=== PATIENT | male | born 1960 | race Caucasian/White ===

== ENCOUNTER 2016-05-26 02:09 | Observation (INO) | payer BC ==
[2016-05-26] MEDS ORDERED: NITROGLYCERIN SL TABS 0.4 MG TAB SUBLINGUAL STA (02:40)
[2016-05-26] MEDS ORDERED: ASPIRIN 81 MG CHEW PO STA (02:40)
[2016-05-26 02:59] LABS: Basophils # (A) 0.1 k/uL (0-0.2); Basophils % (A) 1 %; CH 29.7; CHCM 36.2; Eosinophils # (A) 0.2 k/uL (0-0.7); Eosinophils % (A) 4 %; HCT 45.5 % (39.0-53.0); HDW 3.05; HGB 15.9 gm/dL (13.0-17.5); Luc # (Auto) 0.16; Luc % (Auto) 3; Lymphocytes # (A) 1.5 k/uL (1.0-4.8); Lymphocytes % (A) 28 %; MCH 28.8 pg (25.0-35.0); MCV 82.4 fL (80.0-100.0); Mean Platelet Volume 7.3; Monocytes # (A) 0.5 k/uL (0-1.0); Monocytes % (A) 10 %; Neutrophils # (A) 2.9 k/uL (1.3-7.7); Neutrophils % (A) 55 %; RBC 5.52 m/uL (4.30-5.90); RDW 13.2 % (11.5-15.5); WBC 5.3 k/uL (3.8-10.6); WBC (Perox) 5.16
[2016-05-26 03:05] LABS: ALT 56 U/L (21-72); AST 30 U/L (17-59); Alkaline Phosphatase 42 U/L (38-126); Anion Gap 12 mmol/L; Blood Urea Nitrogen 18 mg/dL (9-20); Calcium 9.8 mg/dL (8.4-10.2); Carbon Dioxide 26 mmol/L (22-30); Chloride 102 mmol/L (98-107); Glucose 124 mg/dL (74-99); Magnesium 2.1 mg/dL (1.6-2.3); Non-African American GFR(MDRD) >60 (>60 ml/min/1.73 sqM); Potassium 4.1 mmol/L (3.5-5.1); Sodium 140 mmol/L (137-145); Total Bilirubin 0.8 mg/dL (0.2-1.3); Total Protein 7.2 g/dL (6.3-8.2)
--- NOTE | 2016-05-26 03:12 | XR ---
EXAMINATION TYPE: XR chest 1V portable DATE OF EXAM: 05/26/2016 3:05 AM COMPARISON: 02/18/2014 HISTORY: Chest pain TECHNIQUE: Single frontal view of the chest is obtained. FINDINGS: There is no focal air space opacity, pleural effusion, or pneumothorax seen. The cardiac silhouette size is within normal limits. The osseous structures are intact. Moderate degenerative c hanges in the thoracolumbar spine. IMPRESSION: 1. No acute process. 2. No significant change.
[2016-05-26] MEDS ORDERED: NITROGLYCERIN SL TABS 0.4 MG TAB SUBLINGUAL PRN (05:46)
--- NOTE | 2016-05-26 05:49 | ED ---
General Adult HPI - General Chief complaint: Extremity Problem,Nontraumatic Stated complaint: Shoulder Pain/Facial/Arms/Leg Tingling Time Seen by Provider: 05/26/16 02:24 Source: patient, RN notes reviewed Mode of arrival: wheelchair Limitations: no limitations - History of Present Illness Initial comments: This patient is a 55-year-old man who presents to be evaluated for chest and shoulder sensation. The patient states that he had been trying to go to sleep probably about an hour ago and noted that he had a funny feeling going into his left shoulder and down the left arm. There was also little bit of a sensation toward the left side of his neck or face. He may have been having some mild dyspnea as well. He got up and checked his blood pressure and found that it was somewhat high for him in the neighborhood of 160/90 so he decided to be seen here. He has been having some intermittent episodes like this over the past few days. Patient states that he did have a stress test previously but this was a number years ago. Patient denies any other anginal symptoms Onset/Timin -: hour(s) Radiation: extremity Quality: dull, constant Consistency: constant Improves with: none Worsens with: none Associated Symptoms: shortness of breath Treatments Prior to Arrival: none - Related Data Home Medications Medication Instructions Recorded Confirmed Aspirin 81 mg PO DAILY 02/18/14 05/26/16 Fenofibrate Nanocrystallized 1 tab PO DAILY 02/18/14 05/26/16 [Tricor] Losartan/Hydrochlorothiazide 1 tab PO DAILY 02/18/14 05/26/16 [Hyzaar 100-25 Tablet] Multivitamins, Thera [Multivitamin] 1 each PO DAILY 11/12/14 05/26/16 Simvastatin [Zocor] 40 mg PO DAILY 11/12/14 05/26/16 amLODIPine [Norvasc] 5 mg PO DAILY 05/26/16 05/26/16 Allergies Allergy/AdvReac Type Severity Reaction Status Date / Time No Known Allergies Allergy Verified 05/26/16 02:16 Review of Systems ROS Statement: Those systems with pertinent positive or pertinent negative responses have been documented in the HPI. ROS Other: All systems not noted in ROS Statement are negative. Constitutional: Denies: fever, chills Respiratory: Reports: as per HPI, dyspnea. Denies: cough Cardiovascular: Reports: as per HPI, chest pain. Denies: palpitations, edema, syncope Gastrointestinal: Denies: abdominal pain, nausea, vomiting, melena, hematochezia Genitourinary: Denies: dysuria Musculoskeletal: Denies: back pain Skin: Reports: other (Feeling flushed). Denies: rash Neurological: Reports: numbness (Left arm). Denies: headache, weakness Past Medical History Past Medical History: Hyperlipidemia, Hypertension, Sleep Apnea/CPAP/BIPAP Additional Past Medical History / Comment(s): SLEEP APNEA History of Any Multi-Drug Resistant Organisms: None Reported Past Surgical History: Orthopedic Surgery Additional Past Surgical History / Comment(s): RIGHT SHOULDER, Past Anesthesia/Blood Transfusion Reactions: No Reported Reaction Past Psychological History: No Psychological Hx Reported Smoking Status: Never smoker Past Alcohol Use History: None Reported Past Drug Use History: None Reported - Past Family History Father Family Medical History: Cancer General Exam Limitations: no limitations General appearance: alert, in no apparent distress, anxious Head exam: Present: atraumatic, normocephalic, normal inspection Eye exam: Present: normal appearance ENT exam: Present: normal oropharynx Neck exam: Present: normal inspection Respiratory exam: Present: normal lung sounds bilaterally. Absent: respiratory distress, wheezes, rales, rhonchi, stridor Cardiovascular Exam: Present: regular rate, normal rhythm, normal heart sounds. Absent: systolic murmur, diastolic murmur, rubs, gallop GI/Abdominal exam: Present: soft. Absent: distended, tenderness, guarding Extremities exam: Present: normal inspection, normal capillary refill. Absent: pedal edema, calf tenderness Back exam: Present: normal inspection. Absent: CVA tenderness (R), CVA tenderness (L) Neurological exam: Present: alert Skin exam: Present: warm, dry, intact, normal color. Absent: rash Course Vital Signs 05/26/16 05/26/16 02:12 06:09 Temperature 97.4 F L Pulse Rate 82 72 Respiratory 18 12 Rate Blood Pressure 155/89 134/68 O2 Sat by Pulse 97 98 Oximetry EKG Findings - EKG Results: EKG: interpreted by MOUSTAPHA GAN, sinus rhythm (Rate 73 bpm), normal axis, normal QRS, normal ST/T, no acute changes Medical Decision Making - Lab Data Result diagrams: 05/26/16 02:20 05/26/16 02:20 Lab Results 05/26/16 05/26/16 05/26/16 Range/Units 02:20 02:20 02:20 WBC 5.3 (3.8-10.6) k/uL RBC 5.52 (4.30-5.90) m/uL Hgb 15.9 (13.0-17.5) gm/dL Hct 45.5 (39.0-53.0) % MCV 82.4 (80.0-100.0) fL MCH 28.8 (25.0-35.0) pg MCHC 35.0 (31.0-37.0) g/dL RDW 13.2 (11.5-15.5) % Plt Count 252 (150-450) k/uL Neutrophils % 55 % Lymphocytes % 28 % Monocytes % 10 % Eosinophils % 4 % Basophils % 1 % Neutrophils # 2.9 (1.3-7.7) k/uL Lymphocytes # 1.5 (1.0-4.8) k/uL Monocytes # 0.5 (0-1.0) k/uL Eosinophils # 0.2 (0-0.7) k/uL Basophils # 0.1 (0-0.2) k/uL Sodium 140 (137-145) mmol/L Potassium 4.1 (3.5-5.1) mmol/L Chloride 102 (98-107) mmol/L Carbon Dioxide 26 (22-30) mmol/L Anion Gap 12 mmol/L BUN 18 (9-20) mg/dL Creatinine 1.10 (0.66-1.25) mg/dL Est GFR (MDRD) Af Amer >60 (>60 ml/min/1.73 sqM) Est GFR (MDRD) Non-Af >60 (>60 ml/min/1.73 sqM) Glucose 124 H (74-99) mg/dL Calcium 9.8 (8.4-10.2) mg/dL Magnesium 2.1 (1.6-2.3) mg/dL Total Bilirubin 0.8 (0.2-1.3) mg/dL AST 30 (17-59) U/L ALT 56 (21-72) U/L Alkaline Phosphatase 42 (38-126) U/L Troponin I <0.012 (0.000-0.034) ng/mL Total Protein 7.2 (6.3-8.2) g/dL Albumin 4.4 (3.5-5.0) g/dL Disposition Clinical Impression: Chest pain Disposition: ADMITTED IP TO THIS HOSP Condition: Fair
[2016-05-26 07:09] VITALS: RESP 16
[2016-05-26] MEDS ORDERED: amLODIPine 5 MG TAB PO SCH (09:00)
[2016-05-26] MEDS ORDERED: LOSARTAN-HCTZ 50-12.5 MG 1 EACH TAB PO SCH (09:00)
[2016-05-26] MEDS ORDERED: METOPROLOL TARTRATE 25 MG TAB PO SCH (09:00)
[2016-05-26] MEDS ORDERED: ATORVASTATIN 20 MG TAB PO SCH (09:00)
[2016-05-26] MEDS ORDERED: MULTIVITAMINS, THERA 1 EACH TAB PO SCH (09:00)
[2016-05-26] MEDS ORDERED: ASPIRIN 81 MG CHEW PO SCH (09:00)
[2016-05-26] MEDS ORDERED: FENOFIBRATE 160 MG TAB PO SCH (09:00)
[2016-05-26 09:26] VITALS: BMI 35.7
[2016-05-26 10:05] LABS: Creatine Kinase 125 U/L (55-170)
[2016-05-26 10:18] LABS: Creatine Kinase MB 1.3 ng/mL (0.0-2.4); Troponin I <0.012 ng/mL (0.000-0.034)
[2016-05-26] MEDS ORDERED: amLODIPine 5 MG TAB PO STA (11:49)
[2016-05-26 11:57] VITALS: BP 143/72; PULSE 73; TEMP 98.9
--- NOTE | 2016-05-26 11:57 | P.CRDCN ---
History of Present Illness Chief complaint: htn History of present illness: 55-year-old male patient who was getting ready to go to bed. He started experiencing pounding in the chest a vague discomfort in the left deltopectoral groove area numbness in the face and then later flushing all over the body down to the legs Each time he would have this symptom complex his blood pressure was high with a normal heart rate He recalled the highest blood pressure almost 200 mmHg Review of systems: No fever chills or rigors, no cough, phlegm or expectoration , no nausea, vomiting or diarrhea, no hematuria, dysuria, no musculoskeletal complaints, no strokes or seizures, no skin lesions. Past history of hypertension, dyslipidemia, obstructive sleep apnea using a CPAP mask Medications reviewed he takes Hyzaar 100/25 mg along with amlodipine 5 mg daily He also takes TriCor and simvastatin Nondiabetic Never smoker no alcohol use On examination afebrile 98.5, pulse rate in the 70s, blood pressure 158/73 mmHg and 149/73 mmHg Heart sounds are normal no murmurs or gallops Breath sounds are normal no rhonchi no crackles No JVD no thyromegaly no carotid bruits Abdomen soft nontender Extremities warm no edema . ECG shows normal sinus rhythm and normal cardiac intervals no ST segment abnormalities this ECG was compared with his ECG from 2011 and is virtually identical Labs are reviewed. 2 serial cardiac enzymes are normal, hemoglobin normal, electrolytes normal, Impression Atypical chest discomfort associated with numbness in the face and flushing all over the body including the both legs No evidence for acute myocardial injury Uncontrolled hypertension associated with these symptoms Dyslipidemia Obstructive sleep apnea Plan Low salt diet Third set of cardiac enzymes If this is normal he may go home today on a higher dose of amlodipine of 10 mg a day Stagger blood pressure medications one in the morning and 1 in the evening Past Medical History Past Medical History: Hyperlipidemia, Hypertension, Sleep Apnea/CPAP/BIPAP Additional Past Medical History / Comment(s): SLEEP APNEA History of Any Multi-Drug Resistant Organisms: None Reported Past Surgical History: Orthopedic Surgery Additional Past Surgical History / Comment(s): RIGHT SHOULDER, Past Anesthesia/Blood Transfusion Reactions: No Reported Reaction Past Psychological History: No Psychological Hx Reported Smoking Status: Never smoker Past Alcohol Use History: None Reported Past Drug Use History: None Reported - Past Family History Mother Additional Family Medical History / Comment(s): HEART BYPASS Father Family Medical History: Cancer Medications and Allergies Home Medications Medication Instructions Recorded Confirmed Type Aspirin 81 mg PO DAILY 02/18/14 05/26/16 History Fenofibrate Nanocrystallized 1 tab PO DAILY 02/18/14 05/26/16 History [Tricor] Losartan/Hydrochlorothiazide 1 tab PO DAILY 02/18/14 05/26/16 History [Hyzaar 100-25 Tablet] Multivitamins, Thera [Multivitamin] 1 each PO DAILY 11/12/14 05/26/16 History Simvastatin [Zocor] 40 mg PO DAILY 11/12/14 05/26/16 History amLODIPine [Norvasc] 5 mg PO DAILY 05/26/16 05/26/16 History Allergies Allergy/AdvReac Type Severity Reaction Status Date / Time No Known Allergies Allergy Verified 05/26/16 02:16 Physical Exam Vitals: Vital Signs Temp Pulse Pulse Resp BP BP Pulse Ox 05/26/16 07:20 98.5 F 72 16 149/73 95 05/26/16 07:08 98 F 78 16 158/73 93 L 05/26/16 06:09 72 12 134/68 98 Intake and Output 05/25/16 05/26/16 05/26/16 22:59 06:59 14:59 Other: Voiding Method Toilet Weight 119.5 kg 119.5 kg Patient Weight 05/27/16 06:59 Weight 119.5 kg Results 05/26/16 02:20 05/26/16 02:20 Cardiac Enzymes 05/26/16 Range/Units 09:07 CK-MB (CK-2) 1.3 (0.0-2.4) ng/mL Troponin I <0.012 (0.000-0.034) ng/mL Current Medications Generic Name Dose Route Start Last Admin Trade Name Freq PRN Reason Stop Dose Admin Amlodipine Besylate 5 mg 05/26/16 09:00 05/26/16 11:32 Norvasc PO 5 mg DAILY [facility] Administration Aspirin 325 mg 05/27/16 09:00 Aspirin PO DAILY [facility] Atorvastatin Calcium 20 mg 05/26/16 09:00 05/26/16 09:33 Lipitor PO 20 mg DAILY [facility] Administration Fenofibrate 160 mg 05/26/16 09:00 05/26/16 09:33 Lofibra PO 160 mg DAILY [facility] Administration HCTZ/Losartan Potassium 2 each 05/26/16 09:00 05/26/16 09:33 Hyzaar 50-12.5 PO 2 each DAILY [facility] Administration Multivitamins 1 each 05/26/16 09:00 05/26/16 09:33 Theragran PO 1 each DAILY JA[facility] Administration Nitroglycerin 0.4 mg 05/26/16 05:46 Nitrostat SUBLINGUAL Q5M PRN Chest Pain Sodium Chloride 10 ml 05/26/16 09:00 05/26/16 09:35 Saline Flush IV 10 ml BID JAIME Administration Intake and Output 05/25/16 05/26/16 05/26/16 22:59 06:59 14:59 Other: Voiding Method Toilet Weight 119.5 kg 119.5 kg Patient Weight 05/27/16 06:59 Weight 119.5 kg
--- NOTE | 2016-05-26 12:58 | HP ---
DATE OF ADMISSION: CHIEF COMPLAINT: Tingling, numbness left arm, left face over the last several days. This is a 55-year-old white male that had this unusual chest, neck, shoulder sensation that has been going on that night, woke up and when checked his blood pressure, it was 160/90 decided to come. He said it actually had been happening over the last several days. He said he might have had some mild dyspnea, but the feeling was definitely uncomfortable. He has had a stress test over the last several years and was negative. The radiation was down the extremity, the quality was a dull consistently constant. There was no improvement or worsening within the relationship, but he did have some shortness of breath. ALLERGIES: No known medications. His medications include: 1. Aspirin 81 mg a day. 2. He takes TriCor ( ) daily. 3. Hyzaar 100/25 one daily. 4. Multivitamin. 5. Simvastatin 40. 6. Amlodipine 5. His family history is just basically cancer throughout. PAST MEDICAL HISTORY: Hyperlipidemia, hypertension, sleep apnea. He has had history of arthritis involving the shoulders and lower back. He has had shoulder surgery. Past surgeries have been shoulder surgery. SOCIAL HISTORY: Basically never smoker. Occasional drinker. He lives alone. He works for the [employer] for years. REVIEW OF SYSTEMS: CARDIOPULMONARY: No shortness of breath except for maybe one time, no paroxysmal nocturnal dyspnea. No true chest pain, but the feeling of uncomfortability in left anterior chest with some discomfort down the left arm and left neck. GI: No hematemesis, melena, hematochezia. : No nausea or vomiting. Occasionally he has to push his urine to start. MUSCULOSKELETAL: He just has history of back pain for many years ago, degenerative disc disease. Neurological symptoms which is the numbness. No headache. No weakness Skin has been with no problems. PHYSICAL EXAMINATION: VITAL SIGNS: Blood pressure 134/68, heart rate was in the 70s, temperature was 98 and his respiratory rate was 12 ENT was within normal limits. Neck is supple. Midline trachea. CHEST: Essentially clear to auscultation. HEART: Sinus rhythm with no murmur. ABDOMEN: Soft, nontender. No organomegaly. EXTREMITIES: Really within normal limits. He does have some arthritis in his hands and some decreased range of motion lower extremity. Evaluation of EKG does appear to be within normal limits. Initial lab work showed a 15.9 hemoglobin. He did have a potassium of 4.1, BUN of 18 and a creatinine of 0.11 with greater than GFR of 60. Glucose was slightly elevated 124. The troponin was negative. ASSESSMENT: 1. Nonspecific chest pain. 2. Long-standing history of hypertension. 3. History of hyperlipidemia, both cholesterol and triglycerides. 4. Hypertension, that has been stable. PLAN: Watch him on telemetry. Will continue monitoring him on telemetry and cardiac consult. ( )
[2016-05-26 14:23] LABS: Creatine Kinase 117 U/L (55-170)
[2016-05-26 14:36] LABS: Creatine Kinase MB 1.1 ng/mL (0.0-2.4); Troponin I <0.012 ng/mL (0.000-0.034)
[2016-05-27] MEDS ORDERED: ASPIRIN 325 MG TAB PO SCH (09:00)
--- NOTE | 2016-08-05 12:31 | DS ---
DATE OF ADMISSION: 05/26/2016 DATE OF DISCHARGE: 05/26/2016 DISCHARGE DIAGNOSES: 1. Acute chest pain, noncardiac in nature. 2. Longstanding history of hypertension. 3. Hyperlipidemia. 4. Sleep apnea. A 55-year-old white male that came in, was ready to go to bed, he developed a pounding chest pain that was very vague in the left pectoral area with some numbness to his face and later flushing on down his body. Because of his initial high blood pressure of 200, he decided to come in for evaluation to the emergency room. At that time, he was found to have a history of hypertension, just lipidemia and obstructive sleep apnea. He has been a nonsmoker, nondiabetic all his life, just with hypertension. His initial EKG was within normal. He has had 3 serial enzymes which were negative. Because of his past medical history of hypertension and sleep apnea, he was kept overnight and followed accordingly. While in the hospital, as we noticed his monitor and labs were all within normal limits including his chest x-ray and at that period of time, he was evaluated by Dr. Wray and ended up everything was normal, some he was discharged home in good condition. He was set up to followup with Dr. Wray to be set up for an outpatient stress test. He was placed on aspirin, to continue with that. His TriCor 145 daily. His Hyzaar 100-25 daily, Theragran, Cozaar 40, Norvasc 5 mg a daily. His activity was limited until he had a stress test and he would be on a low-fat diet, follow up with me accordingly with me in 1 week.
== END 2016-05-26 16:09 | disposition home or self-care (01) ==
LOC: EC 02:09 → 3OBS 05:46
PROVIDERS: ADMIT Family Medicine; ATTEND Family Medicine
DX: R07.89 Other chest pain (principal); I10 Essential (primary) hypertension; E78.5 Hyperlipidemia, unspecified; G47.33 Obstructive sleep apnea (adult) (pediatric); R20.0 Anesthesia of skin; M25.519 Pain in unspecified shoulder; R06.02 Shortness of breath; M19.012 Primary osteoarthritis, left shoulder; M19.011 Primary osteoarthritis, right shoulder; M46.90 Unspecified inflammatory spondylopathy, site unspecified; Z79.82 Long term (current) use of aspirin; Z79.899 Other long term (current) drug therapy; Z99.89 Dependence on other enabling machines and devices; Z82.49 Family history of ischemic heart disease and other diseases of the circulatory system
CPT/HCPCS: 36415; 93005; 80061; 80053; 82550; 82553; 83735; 84443; 84484; 85025; 71010; 99285; G0378

== ENCOUNTER → 2018-07-08 | Outpatient (CLI) | payer BC ==
--- NOTE | 2018-07-08 12:51 | US ---
EXAMINATION TYPE: US renal artery duplex complete DATE OF EXAM: 07/08/2018 COMPARISON: NONE CLINICAL HISTORY: Hypertension,I10, R03.0 Increased Blood Pressure. Patient stated is on multiple med ications to control blood pressure MEASUREMENTS: RENAL SIZE: Rt Kidney: 11.9 x 6.7 x 4.8cm Lt Kidney: 11.4 x 6.8 x 6.6cm RESISTANCE INDEX Right: 0.65 mid Left: 0.76 mid RA/AO RATIO (< 3.5 ) Right: 1.0 Left: 1.8 RA VELOCITY ( < 180 cm/s) Right: 99.3cm/s distally Left: 182.8cm/s proximally and rechecked Grayscale, color Doppler, spectral Doppler imaging performed of the abdominal aorta and renal arterie s. Aorta: upper aorta size on Transverse View = 2.47cm. mild intimal wall thickening is noted in common iliac arteries bilaterally. Triphasic waveform noted within the aorta and proximal right renal arter y. Right Kidney: appearance of duplicate distal renal artery is noted. No hydronephrosis or masses are seen. Left Kidney: lobular cortex is noted; lower pole simple cyst imaged = 0.6 x 0.8 x 0.5cm; elevated PSV is noted in proximal Left Renal Artery and is documented x 2. Cortical medullary differentiation is maintained bilaterally. Waveform analysis shows risk upstroke and low resistance diastolic flow within the arcuate and segmen ana lilia arteries evaluated. Left renal artery shows tortuosity. IMPRESSION: Peak systolic velocity is mildly elevated at the level of the renal artery on the left possibly relat ed to technique as the vessel is tortuous. No other evidence of renal artery stenosis. Renal artery C TA or MRA may be of benefit.
== END | disposition home or self-care (01) ==
LOC: RADUSWWP 08:52
PROVIDERS: ATTEND Family Medicine
DX: R93.89 Abnormal findings on diagnostic imaging of other specified body structures (principal); I10 Essential (primary) hypertension
CPT/HCPCS: 93975

== ENCOUNTER → 2021-09-27 | Outpatient (CLI) | payer BC ==
[2021-09-27 18:40] LABS: Blood Urea Nitrogen 26.9 mg/dL (9.0-27.0); Carbon Dioxide 25.5 mmol/L (20.0-27.5); Chloride 100 mmol/L (96-109); Chol/HDL Ratio 4.76 Ratio; Non-African American GFR(CKD) 60.4 (60.0-200.0); Potassium 4.6 mmol/L (3.5-5.5); Sodium 137 mmol/L (135-145)
== END | disposition home or self-care (01) ==
LOC: LABWHC1 13:35
PROVIDERS: ATTEND Family Medicine
DX: E29.1 Testicular hypofunction (principal); I10 Essential (primary) hypertension; E11.9 Type 2 diabetes mellitus without complications
CPT/HCPCS: 36415; 80051; 80061; 82565; 83036; 84403; 84520

== ENCOUNTER → 2022-05-02 | Outpatient (CLI) | payer BC ==
[2022-05-02 11:01] VITALS: BP 156/75; PULSE 77; RESP 18; TEMP 98.3
--- NOTE | 2022-05-02 11:31 | P.PAINCN ---
History of Present Illness - Reason for Consult Consult date: 05/02/22 - History of Present Illness This is an initial consultation visit for this 61 years old male with a chronic history of severe low back pain, started more than 6 years ago, a shunt reported that he does a lot of heavy lifting at work, that he denies any initiating event, reported that the pain mostly in the low back area and more prominent on the right side with occasional radiation to the right lower extremity, he was t reated previously at different pain clinic with epidural steroid injection and the last injection was done more than 2 years ago, denies any motor or sensory deficits he denies any fever or night sweats he denies any change in the bowel movement or urination, he is currently doing physical therapy which was started 3 weeks ago , and he is doing home exercise , tried pain medication in the past ,NSAID, minimal benefit Past Medical History Past Medical History: Hyperlipidemia, Hypertension, Sleep Apnea/CPAP/BIPAP Additional Past Medical History / Comment(s): SLEEP APNEA History of Any Multi-Drug Resistant Organisms: None Reported Past Surgical History: Orthopedic Surgery Additional Past Surgical History / Comment(s): RIGHT SHOULDER, Past Anesthesia/Blood Transfusion Reactions: No Reported Reaction Smoking Status: Never smoker - Past Family History Mother Additional Family Medical History / Comment(s): HEART BYPASS Father Family Medical History: Cancer Medications and Allergies Home Medications Medication Instructions Recorded Confirmed Type Aspirin 81 mg PO DAILY 02/18/14 05/02/22 History Losartan/Hydrochlorothiazide 1 tab PO DAILY 02/18/14 05/02/22 History [Hyzaar 100-25 Tablet] Multivitamins, Thera [Multivitamin] 1 tab PO DAILY 11/12/14 05/02/22 History Simvastatin [Zocor] 40 mg PO DAILY 11/12/14 05/02/22 History Fenofibrate Nanocrystallized 145 mg PO DAILY 05/26/16 05/02/22 History [Tricor] amLODIPine [Norvasc] 5 mg PO DAILY 05/26/16 05/02/22 History Allergies Allergy/AdvReac Type Severity Reaction Status Date / Time No Known Allergies Allergy Verified 05/02/22 10:48 Physical Exam Vitals: Vital Signs Temp Pulse Resp BP Pulse Ox 05/02/22 10:53 98.3 F 77 18 156/75 97 Intake and Output 05/01/22 05/02/22 05/02/22 22:59 06:59 14:59 Other: Weight 109.769 kg - Constitutional Physical Examinations : -Constitutiona : Cooperative , not in acute distress . -HEENT : nech : supple , no Lymphadenopathy , normal thyroid size . : eyes : no ptosis , no icterus, no photophobia . - neurologic : Cranial nerve II to XII intact , no focal neurological deffecit . -psychatric : alert , oriented X 3 , appropriate affect , intact judgment and insight . -Lymphatic : no Lymphadenopathy . - musculoskeltal : Lumber spine moter stegnth lower extremities ,thigh and legs 5/5 Right side , 5/5 Left side deep tendon reflexes : normal Knee Jerk , normal ankle Jerk lumber facet Loading Test =positive Right , positive Left Range of motion of the lumbar spine Flexion 30 degrees, extension 10 degrees strait leg raising test = positive at 30 degree right side , negative on the left side Fabere test= positive Right , and positive LT . mild tenderness over the Sacroiliac joint on the Right , and Left sides Results Comments: X-ray of the lumbar spine done a few years ago showed lumbar degenerative disc disease and lumbar facet arthropathy Assessment and Plan Plan: Assessment and plan=1-lumbar degenerative /herniated disc disease. 2-LUmber spondylosis. We'll order MRI of the lumbar spine to evaluate the etiology. She'll follow up in the pain clinic in 2 weeks for evaluation Time with Patient: Greater than 30 PQRS Measure Charge Sheet Mode of Arrival: Ambulatory - Pain Location Right Lower Back Non-Pharmacological Interventions: Exercise, Heat, Home Exercise, Massage, Physical Therapy, Position/Reposition, Stretching PQRS Narrative: Smoking Status Never smoker Blood Pressure 156/75 Pain Intensity [Right Lower 7 Back] Scale Used Numeric (1 - 10) Hx Alcohol Use (MH) No Home Medications: Ambulatory Orders Aspirin 81 mg PO DAILY 02/18/14 Losartan/Hydrochlorothiazide [Hyzaar 100-25 Tablet] 1 tab PO DAILY 02/18/14 Multivitamins, Thera [Multivitamin] 1 tab PO DAILY 11/12/14 Simvastatin [Zocor] 40 mg PO DAILY 11/12/14 Fenofibrate Nanocrystallized [Tricor] 145 mg PO DAILY 05/26/16 amLODIPine [Norvasc] 5 mg PO DAILY 05/26/16
== END ==
LOC: PNWHC3 08:03
PROVIDERS: ATTEND Specialist
DX: M47.816 Spondylosis without myelopathy or radiculopathy, lumbar region (principal); M51.36 Other intervertebral disc degeneration, lumbar region; G47.30 Sleep apnea, unspecified; Z99.89 Dependence on other enabling machines and devices; I10 Essential (primary) hypertension; E78.5 Hyperlipidemia, unspecified; Z79.899 Other long term (current) drug therapy
CPT/HCPCS: 99211

== ENCOUNTER → 2022-05-11 | Outpatient (CLI) | payer BC ==
--- NOTE | 2022-05-11 13:43 | XR ---
EXAMINATION TYPE: XR lumbar spine 2 or 3V DATE OF EXAM: 05/11/2022 CLINICAL HISTORY: Chronic right lower back pain TECHNIQUE: Three views of the lumbar spine are submitted. COMPARISON: Lumbar spine radiograph 01/13/2018 FINDINGS: There are 5 lumbar type vertebral bodies identified. The lumbar spine shows satisfactory alignment w ithout evidence of acute fracture or dislocation. Vertebral body heights are within normal limits. Mu ltilevel intervertebral disc space narrowing with endplate sclerosis and anterior osteophytosis, most probably L5-S1. Multilevel facet arthropathy. The overlying soft tissue appears unremarkable. IMPRESSION: 1. No acute fracture or dislocation is seen in the lumbar spine. 2. Multilevel degenerative disc disease and facet arthropathy is mildly progressed from prior exam.
== END | disposition home or self-care (01) ==
LOC: RADXRYALE 13:26
PROVIDERS: ATTEND Physician Assistant Medical
DX: M51.36 Other intervertebral disc degeneration, lumbar region (principal); M47.816 Spondylosis without myelopathy or radiculopathy, lumbar region
CPT/HCPCS: 72100

== ENCOUNTER → 2022-05-29 | Outpatient (CLI) | payer BC ==
--- NOTE | 2022-05-29 16:02 | MR ---
EXAMINATION TYPE: MR lumbar spine wo con DATE OF EXAM: 05/29/2022 COMPARISON: Lumbar spine x-ray May 11, 2022 HISTORY: Lower back pain, right side for 4 years. TECHNIQUE: Multiplanar, multisequence imaging of the lumbar spine is performed without IV contrast. FINDINGS: Sagittal images of the lumbar spine show vertebral body height to appear satisfactory. Slig ht grade 1 retrolisthesis L4 on L5. Multilevel disc desiccation. Mild multilevel disc space narrowing . Mild to moderate multilevel anterior spurring. The conus medullaris is normal in position and signa l ending at T12-L1 disc space level. Axial images show T12-L1 level to appear within normal limits. Axial images at L1-L2 show mild broad disc bulge and mild facet arthropathy bilaterally. There is min imal effacement of the anterior thecal sac. Patent bilateral neural foramina. Axial images at L1-L2 levels show mild facet arthropathy bilaterally. Axial images at L2-L3 level appear within normal limits. Axial images at L3-L4 level show mild/moderate broad disc bulge mildly effacing anterior thecal sac w ith mild facet arthropathy bilaterally. There is slight effacement of the left posterior lateral thec al sac. There is mild bilateral neural foraminal narrowing. Axial images at L4-L5 level shows spondylolisthesis and mild broad disc bulge with central disc protr usion mildly effacing anterior thecal sac. There is mild bilateral neural foraminal narrowing. Axial images at L5-S1 level show mild facet arthropathy bilaterally. Spinal canal is preserved. Bilat eral neural foramina are patent. Paraspinal muscle bulk is maintained. IMPRESSION: Multilevel degenerative changes in the lumbar spine as detailed above.
== END | disposition home or self-care (01) ==
LOC: RADMRIMAIN 14:24
PROVIDERS: ATTEND Specialist
DX: M47.16 Other spondylosis with myelopathy, lumbar region (principal); M51.06 Intervertebral disc disorders with myelopathy, lumbar region; M43.16 Spondylolisthesis, lumbar region; M99.73 Connective tissue and disc stenosis of intervertebral foramina of lumbar region
CPT/HCPCS: 72148

== ENCOUNTER → 2022-06-07 | Outpatient (CLI) | payer BC ==
[2022-06-07 13:17] VITALS: BP 131/84; PULSE 84; RESP 18; TEMP 98.3
--- NOTE | 2022-06-07 15:03 | P.PAINPG ---
PQRS Measure Charge Sheet Comment: A 61 yr old male with a history of severe and chronic LBP on & off x years secondary to lumbar DDD and spondylosis with facet arthropathy without myelopathy presents today for evaluation of MRI of the lumbar spine. Pain level is provoked at 7 /10 in intensity, constant, localized in the R lumbar spine, stabbing in character w shooting pain. Pain is provoked by standing/ forward leaning for periods of 15 min or more, or lifting or bending. Pain is alleviated with PT x 7 wks which he is currently in, massage integrated w PT, heat, medications (ASA), repositioning and rest. Interventional pain procedures completed include LESIs x3 at another facility Patient is currently on ASA Patient denies any side effects of the medication(s), denies excessive drowsiness or sleepiness, denies suicidal ideation and reports that the current pain medication is helping to control the pain and improve activities of daily living. Patient denies any motor or sensory deficits. Patient denies any fever or night sweats, denies any change in the bowel movements or urination. Physical Examination: -Constitutional: Cooperative. Not in acute distress . - Neurologic: Cranial nerve II to XII intact. No focal neurological deficits. - Psychatric: Alert & oriented x 3. Matching mood & appropriate affect. Judgment and insight intact. - Musculoskeletal: Cervical spine: Muscle bulk/ tone/ strength in the bilateral upper extremities normal Vertebral body tenderness to palpation over Spurling test positive Distraction test positive Facet loading test positive Thoracic spine Muscle bulk / tone/ strength in the bilateral paraspinal muscles normal Vertebral body tender to palpation over Facet loading test positive Lumbar spine: Motor bulk/ tone/ strength lower extremities , thigh and legs : 5/5 Deep tendon reflexes : Normal Knee Jerk. Normal Ankle Jerk . Vertebral body tenderness to palpation over L4 Lumbar Facet Loading Test positive Straight Leg Raise: positive at 30 degrees right side/ left side Gaenslen's Test positive Sacral spine : Severe tenderness over the Sacroiliac joint: right side / left side Range of motion: Flexion of the lumbar spine <60 degrees Range of motion: Extension of the lumbar spine <20 degrees Gaenslen's Test positive Ryan test: positive right side / left side Thigh Thrust Test Sacral Thrust Test Imaging: MRI without contrast of the lumbar spine from 05/29/22 reviewed Assessment and plan: Chronic LBP secondary to lumbar DDD, spondylosis with facet arthropathy without myelopathy Recommendation of DANISH L4-L5. May need a series of injections, up to 3 within a 6 mo period, for optimal pain relief. Risks, benefits of procedure discussed and pt verbalized understanding. Denies anticoagulant use or medical history of diabetes. All patient questions answered I have spent less than 30 minutes on patient care today. Dr Alonzo was available by phone for the evaluation of this patient. The time was used to review the medical records including relevant urine studies and Prescription history (MAPs), review of the available imaging, evaluation and examination of the patient, coordination of care with the medical staff and if applicable referring physicians, as well as creation of the medical record PQRS Narrative: Smoking Status Never smoker Hx Alcohol Use (MH) No Home Medications: Ambulatory Orders Aspirin 81 mg PO DAILY 02/18/14 Losartan/Hydrochlorothiazide [Hyzaar 100-25 Tablet] 1 tab PO DAILY 02/18/14 Multivitamins, Thera [Multivitamin] 1 tab PO DAILY 11/12/14 Simvastatin [Zocor] 40 mg PO DAILY 11/12/14 Fenofibrate Nanocrystallized [Tricor] 145 mg PO DAILY 05/26/16 amLODIPine [Norvasc] 5 mg PO DAILY 05/26/16 Controlled Substance Measures - Controlled Substance Measures Is patient prescribed a controlled substance at discharge?: No
== END | disposition home or self-care (01) ==
LOC: PNWHC3 12:21
PROVIDERS: ATTEND Specialist
DX: M47.812 Spondylosis without myelopathy or radiculopathy, cervical region (principal); M51.36 Other intervertebral disc degeneration, lumbar region; M47.816 Spondylosis without myelopathy or radiculopathy, lumbar region; M54.50 Low back pain, unspecified; Z79.82 Long term (current) use of aspirin
CPT/HCPCS: 99211

== ENCOUNTER → 2022-07-30 | Outpatient (CLI) | payer BC ==
[2022-07-30 13:29] VITALS: BP 130/79; PULSE 65; RESP 18; TEMP 98
--- NOTE | 2022-07-30 14:59 | P.PAINPG ---
PQRS Measure Charge Sheet Comment: A 61 yr old male with a history of severe and chronic LBP secondary to lumbar DDD and spondylosis with facet arthropathy without myelopathy presents today for evaluation s/p DANISH L4-L5 #1. Pt states he experienced 40% pain relief s/p procedure. Pain level is provoked at 5 /10 in intensity, constant, localized in the R lumbar spine, achy/ sharp in character w/o shooting pain. Pain is provoked by bending forward. Pain is alleviated with PT integrated w massage x 6 wks in Jul 2022, heat, repositioning and rest. Interventional pain procedures completed include DANISH L4-L5 x1 Patient is currently on ASA Patient denies any side effects of the medication(s), denies excessive drowsiness or sleepiness, denies suicidal ideation and reports that the current pain medication is helping to control the pain and improve activities of daily living. Patient denies any motor or sensory deficits. Patient denies any fever or night sweats, denies any change in the bowel movements or urination. Physical Examination: -Constitutional: Cooperative. Not in acute distress . - Neurologic: Cranial nerve II to XII intact. No focal neurological deficits. - Psychatric: Alert & oriented x 3. Matching mood & appropriate affect. Judgment and insight intact. - Musculoskeletal: Cervical spine: Muscle bulk/ tone/ strength in the bilateral upper extremities normal Vertebral body tenderness to palpation over Spurling test positive Distraction test positive Facet loading test positive TTP Thoracic spine Muscle bulk / tone/ strength in the bilateral paraspinal muscles normal Vertebral body tender to palpation over Facet loading test positive TTP Lumbar spine: Motor bulk/ tone/ strength lower extremities , thigh and legs : 5/5 Deep tendon reflexes : Normal Knee Jerk. Normal Ankle Jerk . Vertebral body tenderness to palpation over Lumbar Facet Loading Test positive TTP over R L4-L5, L5-S1 facets Straight Leg Raise: positive at 30 degrees right side/ left side Gaenslen's Test positive Sacral spine : Severe tenderness over the Sacroiliac joint: right side / left side Range of motion: Flexion of the lumbar spine <60 degrees Range of motion: Extension of the lumbar spine <20 degrees Gaenslen's Test positive right side / left side Ryan test: positive right side / left side Thigh Thrust Test positive right side / left side Sacral Thrust Test positive right side / left side Assessment and plan: Chronic LBP secondary to lumbar DDD, spondylosis with facet arthropathy without myelopathy Recommendation of R facet block of the medial branches L4-L5, L5-S1 #1. May need a series of injections, up until RFA, for optimal pain relief. Risks, benefits of procedure discussed and pt verbalized understanding. Admits to antic oagulant use or medical history of diabetes. Protocol for discontinuation/ continuation of medications andi procedure discussed. All questions answered. I have spent less than 30 minutes on patient care today. Dr Alonzo was available by phone for the evaluation of this patient. The time was used to review the medical records including relevant urine studies and Prescription history (MAPs), review of the available imaging, evaluation and examination of the patient, coordination of care with the medical staff and if applicable referring physicians, as well as creation of the medical record PQRS Narrative: Smoking Status Never smoker Hx Alcohol Use (MH) No Home Medications: Ambulatory Orders Aspirin 81 mg PO DAILY 02/18/14 Losartan/Hydrochlorothiazide [Hyzaar 100-25 Tablet] 1 tab PO DAILY 02/18/14 Multivitamins, Thera [Multivitamin] 1 tab PO DAILY 11/12/14 Simvastatin [Zocor] 40 mg PO DAILY 11/12/14 Fenofibrate Nanocrystallized [Tricor] 145 mg PO DAILY 05/26/16 amLODIPine [Norvasc] 5 mg PO DAILY 05/26/16 Dapagliflozin Propanediol [Farxiga] 5 mg PO DAILY 07/10/22 Finerenone [Kerendia] 10 mg PO DAILY 07/10/22 Irbesartan 300 mg PO DAILY 07/10/22 Omeprazole 40 mg PO DAILY 07/10/22 PARoxetine HCL 40 mg PO DAILY 07/10/22 Testosterone [Axiron] 30 mg TRANSDERM DAILY 07/10/22 cloNIDine 0.2 MG/24HR PATCH [Catapres-TTS] 0.2 mg TRANSDERM Q2D 07/10/22 metFORMIN HCL 1,000 mg PO BID 07/10/22 sitaGLIPtin [Januvia] 100 mg PO DAILY 07/10/22 Controlled Substance Measures - Controlled Substance Measures Is patient prescribed a controlled substance at discharge?: No
== END ==
LOC: PNWHC3 12:27
PROVIDERS: ATTEND Specialist
DX: M51.36 Other intervertebral disc degeneration, lumbar region (principal); M47.816 Spondylosis without myelopathy or radiculopathy, lumbar region; G89.29 Other chronic pain; Z79.82 Long term (current) use of aspirin
CPT/HCPCS: 99211

== ENCOUNTER → 2022-10-04 | Outpatient (CLI) | payer BC ==
[2022-10-04 13:22] VITALS: BP 137/82; PULSE 78; RESP 18; TEMP 98.3
--- NOTE | 2022-10-04 14:27 | P.PAINPG ---
PQRS Measure Charge Sheet Comment: A 62 yr old female with a history of severe and chronic LBP secondary to lumbar DDD and spondylosis with facet arthropathy without myelopathy presents today for evaluation s/p R MBB L3-L5 #1. Pt states he experienced 80% pain relief x 1 day s/p procedure. Pain level is provoked at 8/10 in intensity, constant, localized in the lumbar spine, pinching in character w/o shooting pain. Pain is provoked by bending, lifting. Pain is alleviated with PT semi weekly since May 2022 till present, heat, medications, repositioning and rest. Interventional pain procedures completed include R MBB L3=L5 x1 Patient is currently on Tyl, Ibu Patient denies any side effects of the medication(s), denies excessive drowsi ness or sleepiness, denies suicidal ideation and reports that the current pain medication is helping to control the pain and improve activities of daily living. Patient denies any motor or sensory deficits. Patient denies any fever or night sweats, denies any change in the bowel movements or urination. Physical Examination: -Constitutional: Cooperative. Not in acute distress . - Neurologic: Cranial nerve II to XII intact. No focal neurological deficits. - Psychatric: Alert & oriented x 3. Matching mood & appropriate affect. Judgment and insight intact. - Musculoskeletal: Cervical spine: Muscle bulk/ tone/ strength in the bilateral upper extremities normal Vertebral body tenderness to palpation over Spurling test positive Distraction test positive Facet loading test positive TTP Thoracic spine Muscle bulk / tone/ strength in the bilateral paraspinal muscles normal Vertebral body tender to palpation over Facet loading test positive TTP Lumbar spine: Motor bulk/ tone/ strength lower extremities , thigh and legs : 5/5 Deep tendon reflexes : Normal Knee Jerk. Normal Ankle Jerk . Vertebral body tenderness to palpation over Lord Test positive Lumbar Facet Loading Test positive over R L4-L5, L5-S1 Straight Leg Raise: positive at 30 degrees right side/ left side Gaenslen's Test positive Sacral spine : Severe tenderness over the Sacroiliac joint: right side / left side Range of motion: Flexion of the lumbar spine <60 degrees Range of motion: Extension of the lumbar spine <20 degrees Gaenslen's Test positive right side / left side Ryan test: positive right side / left side Thigh Thrust Test positive right side / left side Sacral Thrust Test positive right side / left side Assessment and plan: Chronic LBP secondary to lumbar DDD, spondylosis with facet arthropathy without myelopathy Recommendation of R facet block of the medial branches L4-L5, L5-S1 #2. May need a series of injections, up until RFA, for optimal pain relief. Risks, benefits of procedure discussed and pt verbalized understanding. Admits to anticoagulant use or medical history of diabetes. Protocol for discontinuation/ continuation of medications andi procedure discussed. Minimal anesthesia provided, if clinically indicated, consisting of Versed and Fentanyl. All questions answered. I have spent less than 30 minutes on patient care today. Dr Alonzo was available by phone for the evaluation of this patient. The time was used to review the medical records including relevant urine studies and Prescription history (MAPs), review of the available imaging, evaluation and examination of the patient, coordination of care with the medical staff and if applicable referring physicians, as well as creation of the medical record PQRS Narrative: Smoking Status Never smoker Hx Alcohol Use (MH) No Home Medications: Ambulatory Orders Aspirin 81 mg PO DAILY 02/18/14 Losartan/Hydrochlorothiazide [Hyzaar 100-25 Tablet] 1 tab PO DAILY 02/18/14 Multivitamins, Thera [Multivitamin] 1 tab PO DAILY 11/12/14 Simvastatin [Zocor] 40 mg PO DAILY 11/12/14 Fenofibrate Nanocrystallized [Tricor] 145 mg PO DAILY 05/26/16 amLODIPine [Norvasc] 5 mg PO DAILY 05/26/16 Dapagliflozin Propanediol [Farxiga] 5 mg PO DAILY 07/10/22 Finerenone [Kerendia] 10 mg PO DAILY 07/10/22 Irbesartan 300 mg PO DAILY 07/10/22 Omeprazole 40 mg PO DAILY 07/10/22 PARoxetine HCL 40 mg PO DAILY 07/10/22 Testosterone [Axiron] 30 mg TRANSDERM DAILY 07/10/22 cloNIDine 0.2 MG/24HR PATCH [Catapres-TTS] 0.2 mg TRANSDERM Q2D 07/10/22 metFORMIN HCL 1,000 mg PO BID 07/10/22 sitaGLIPtin [Januvia] 100 mg PO DAILY 07/10/22 Controlled Substance Measures - Controlled Substance Measures Is patient prescribed a controlled substance at discharge?: No
== END ==
LOC: PNWHC3 12:23
PROVIDERS: ATTEND Specialist
DX: M51.37 Other intervertebral disc degeneration, lumbosacral region (principal); M47.817 Spondylosis without myelopathy or radiculopathy, lumbosacral region; G89.29 Other chronic pain; Z79.82 Long term (current) use of aspirin
CPT/HCPCS: 99211

== ENCOUNTER 2022-11-30 06:07 | Day surgery (SDC) | payer BC ==
[2022-11-28 15:01] VITALS: BMI 32.8
[2022-11-30] MEDS ORDERED: LACTATED RINGERS 1,000 ML IV SCH (06:25)
[2022-11-30] MEDS ORDERED: LIDOCAINE 1% (10MG/ML) FOR IV START INTRADERMA PRN (06:25)
[2022-11-30 06:35] VITALS: TEMP 97
[2022-11-30 06:40] LABS: Glucose,Whole Blood 111 mg/dL (70-110)
[2022-11-30] MEDS ORDERED: methylPREDNISolone ACETATE 40 MG/ML 1 ML VIAL ONE (07:03)
[2022-11-30] MEDS ORDERED: ROPIVACAINE 5 MG/ML 20 ML AMPULE ONE (07:03)
--- NOTE | 2022-11-30 07:15 | P.PCN ---
Date of Procedure: 11/30/22 Procedure(s) Performed: PREOPERATIVE DIAGNOSIS : 1- Lumbar spondylosis with Facet Arthropathy without myelopathy . 2- Lumber degenerative disc disease POSTOPERATIVE DIAGNOSIS: 1- Lumbar spondylosis with Facet Arthropathy without myelopathy . 2- Lumber degenerative disc disease PROCEDURE: Diagnostic Right L3 , L4 , and L5 medial branch block under fluoroscopy guidance(fluoroscopy images available in the radiology Department ) ( To target the facet joint between Right L4-5 , and L5-S1 )#2nd ANESTHESIA: none. EBL: Minimal COMPLICATION: None PROCEDURE INDICATION: Chronic low back pain secondary to Facet arthropathy unresponsive to conservative treatment. PROCEDURE DESCRIPTION: the patient was seen and identified in the preop holding area , risks and benefits and possible complications of the procedure and alternative were discussed with the patient, and the patient agreed to proceed with the procedure and signed the consent and vital signs monitored during the procedure and fluoroscopy was used to maximize the benefit and accuracy of the needle placement, , patient was taken to the procedure room and placed in prone position vital signs monitored in the back prepped with chlorhexidine X3 then under strict sterile technique using a right oblique fluoroscopy ,the junction of the transverse process and the superior articulating process of the right L3 , L4 , and L5 vertebra which corresponding to the fluoroscopy image of the eye of the Devonte dog on the block side for the medial branches and subsequently , after local infiltration of skin and subcu tissuies with Ropivacaine 0.5 % , one mL at each level ,then 22-gauge Quincke-type needles , 3 needle was used , each one of them placed at the junction of the base of the transverse process and the superior articular process at the appropriate level, and the needle was advanced until the periosteum contacted, needle placement confirmed with AP oblique and lateral view and after appropriate needle placement confirmed, and after negative aspiration for heme and CSF and there was no paresthesia 1-1/2 mL of Ropivacaine 0.5% mixed with 20 mg Depo-Medrol , then half mL injected at each level after negative aspiration the needle subsequently removed . At the end of the procedure and the needles removed and a bandage applied after the skin was cleaned the cleaning solution patient taken to recovery room in stable condition and monitors in the recovery room for 20-30 minutes and discharged home in stable condition after discharge criteria met and patient will follow up with the pain clinic in 2-4 weeks
--- NOTE | 2022-11-30 07:22 | FL ---
Fluoroscopy History: RT LUM FACET BLOCK 4 sec dap [id number]
[2022-11-30 07:26] VITALS: BP 125/74; PULSE 73; RESP 18
== END 2022-11-30 07:42 | disposition home or self-care (01) ==
LOC: ORPAIN 06:07
PROVIDERS: ATTEND Specialist
DX: M47.816 Spondylosis without myelopathy or radiculopathy, lumbar region (principal); M51.36 Other intervertebral disc degeneration, lumbar region; G89.29 Other chronic pain; Z79.82 Long term (current) use of aspirin
CPT/HCPCS: 64494; 64493; J1030; J2795

== ENCOUNTER → 2022-12-20 | Outpatient (CLI) | payer BC ==
[2022-12-20 13:46] VITALS: BP 131/83; PULSE 74; RESP 16; TEMP 99.1
--- NOTE | 2022-12-20 15:50 | P.PAINPG ---
PQRS Measure Charge Sheet Comment: A 62 yr old female with a history of severe and chronic LBP secondary to lumbar DDD and spondylosis with facet arthropathy without myelopathy presents today for evaluation s/p R MBB L3-L5 #2. Pt states he experienced 70 % pain relief x 1 day s/p procedure. Pain level is provoked at 8/10 in intensity, constant, localized in the R lumbar spine, pinching in character w/o shooting pain. Pain is provoked by bending, lifting. Pain is alleviated with PT semi weekly since May 2022 till present, heat, medications, repositioning and rest. Oswestry axial pain score of 24. Interventional pain procedures completed include R MBB L3-L5 x2, DANISH L4-L5 x1 Patient is currently on Tyl, Ibu Patient denies any side effects of the medication(s), denies excessive drowsiness or sleepiness, denies suicidal ideation and reports that the current pain medication is helping to control the pain and improve activities of daily living. Patient denies any motor or sensory deficits. Patient denies any fever or night sweats, denies any change in the bowel movements or urination. Physical Examination: -Constitutional: Cooperative. Not in acute distress . - Neurologic: Cranial nerve II to XII intact. No focal neurological deficits. - Psychatric: Alert & oriented x 3. Matching mood & appropriate affect. Judgment and insight intact. - Musculoskeletal: Cervical spine: Muscle bulk/ tone/ strength in the bilateral upper extremities normal Vertebral body tenderness to palpation over Spurling test positive Distraction test positive Facet loading test positive TTP Thoracic spine Muscle bulk / tone/ strength in the bilateral paraspinal muscles normal Vertebral body tender to palpation over Facet loading test positive TTP Lumbar spine: Motor bulk/ tone/ strength lower extremities , thigh and legs : 5/5 Deep tendon reflexes : Normal Knee Jerk. Normal Ankle Jerk . Vertebral body tenderness to palpation over Lord Test positive R taut bands w twitch response over L2-S1 Lumbar Facet Loading Test positive Straight Leg Raise: positive at 30 degrees right side/ left side Gaenslen's Test positive Sacral spine : Severe tenderness over the Sacroiliac joint: right side / left side Range of motion: Flexion of the lumbar spine <60 degrees Range of motion: Extension of the lumbar spine <20 degrees Gaenslen's Test positive right side / left side Ryan test: positive right side / left side Thigh Thrust Test positive right side / left side Sacral Thrust Test positive right side / left side Assessment and plan: Chronic LBP secondary to lumbar DDD, spondylosis with facet arthropathy without myelopathy Recommendation of R TPIs L2-S1. May need a series of injections for optimal pain relief. Risks, benefits of procedure discussed and pt verbalized understanding. Admits to anticoagulant use or medical history of diabetes. Protocol for discontinuation/ continuation of medications andi procedure discussed. Minimal anesthesia provided, if clinically indicated, consisting of Versed and Fentanyl. Follow up w orthopedic surgeon to explore additional treatment options. All questions answered. I have spent less than 30 minutes on patient care today. Dr Alonzo was available by phone for the evaluation of this patient. The time was used to review the medical records including relevant urine studies and Prescription history (MAPs), review of the available imaging, evaluation and examination of the patient, coordination of care with the medical staff and if applicable referring physicians, as well as creation of the medical record PQRS Narrative: Smoking Status Never smoker Hx Alcohol Use (MH) No Home Medications: Ambulatory Orders Aspirin 81 mg PO DAILY 02/18/14 Losartan/Hydrochlorothiazide [Hyzaar 100-25 Tablet] 1 tab PO DAILY 02/18/14 Multivitamins, Thera [Multivitamin] 1 tab PO DAILY 11/12/14 Simvastatin [Zocor] 40 mg PO DAILY 11/12/14 Fenofibrate Nanocrystallized [Tricor] 145 mg PO DAILY 05/26/16 amLODIPine [Norvasc] 5 mg PO DAILY 05/26/16 Dapagliflozin Propanediol [Farxiga] 5 mg PO DAILY 07/10/22 Finerenone [Kerendia] 10 mg PO DAILY 07/10/22 Irbesartan 300 mg PO DAILY 07/10/22 Omeprazole 40 mg PO DAILY 07/10/22 PARoxetine HCL 40 mg PO DAILY 07/10/22 Testosterone [Axiron] 30 mg TRANSDERM DAILY 07/10/22 cloNIDine 0.2 MG/24HR PATCH [Catapres-TTS] 0.2 mg TRANSDERM Q7D 07/10/22 metFORMIN HCL 1,000 mg PO BID 07/10/22 sitaGLIPtin [Januvia] 100 mg PO DAILY 07/10/22 Controlled Substance Measures - Controlled Substance Measures Is patient prescribed a controlled substance at discharge?: No
== END ==
LOC: PNWHC3 13:05
PROVIDERS: ATTEND Specialist
DX: M51.37 Other intervertebral disc degeneration, lumbosacral region (principal); M47.817 Spondylosis without myelopathy or radiculopathy, lumbosacral region; G89.29 Other chronic pain; Z79.82 Long term (current) use of aspirin
CPT/HCPCS: 99211

== ENCOUNTER → 2023-01-17 | Outpatient (CLI) | payer BC ==
--- NOTE | 2023-01-17 19:55 | XR ---
EXAMINATION TYPE: XR wrist limited 2 views LT, XR hand limited 2 views LT DATE OF EXAM: 01/17/2023 COMPARISON: NONE HISTORY: 62-year-old male history of rheumatoid or Maricruz's, left hand and wrist pain FINDINGS: Wrist: There is a mild joint space narrowing in the radiocarpal joint. No marginal erosions or subcortical c ysts. The radiocarpal and distal radial ulnar joint as well as the metacarpal compartment appear inta ct. No acute fracture. Hand: Mild osteoarthritic spurring at the second DIP joint. [id number] degenerative change first MCP joint. More moderate degenerative change first CMC and triscaphe joints. There is some joint space na rrowing and possible subtle ulnar sided marginal erosion at the fifth DIP joint. No acute fracture, s ubluxation, dislocation. IMPRESSION: 1. Wrist: No specific findings of inflammatory arthropathy in the wrist. No acute osseous abnormality seen. 2. Hand: Osteoarthritic change at the base of the thumb and also at the first MCP and second DIP join ts. There is a questionable subtle early erosion at the fifth DIP joint that can be reassessed at fol low-up. Note that the erosions of RA are located more proximally at the PIP and MCP joints.
== END | disposition home or self-care (01) ==
LOC: RADXRYALE 14:38
PROVIDERS: ATTEND Emergency Medicine
DX: M18.12 Unilateral primary osteoarthritis of first carpometacarpal joint, left hand (principal); M05.742 Rheumatoid arthritis with rheumatoid factor of left hand without organ or systems involvement; M05.732 Rheumatoid arthritis with rheumatoid factor of left wrist without organ or systems involvement

== ENCOUNTER → 2023-02-20 | Outpatient (CLI) | payer BC ==
--- NOTE | 2023-02-20 15:04 | P.SLEEP ---
History of Present Illness DATE: 02/20/2023 CONSULTATION/NEW PATIENT EVALUATION HISTORY OF PRESENT ILLNESS/SLEEP-WAKE EVALUATION: 62-year-old gentleman had been evaluated in the sleep center for obstructive sleep apnea hypopnea syndrome. Patient has history of obstructive sleep apnea diagnosed about 10 years ago in another institution. Since that time patient is on treatment with CPAP. I checked his CPAP unit. This is out of BiPAP with maximal inspiratory pressure 12 and minimal expiratory pressure 7. Pressure-support 3. Patient is using CPAP equipment 100% of nights, average 8.2 hours per night. Leak is 23 L/m which is normal. Apnea-hypopnea index is 0.9 which is normal. SLEEP SCHEDULE: Usually sleep schedule 10:30 PM to 6:30 AM on weekdays and until 8:30 AM on weekend. FALLING ASLEEP: No problems with falling asleep. DURING SLEEP: While using CPAP patient may wake up from sleep 2 times with one episode of nocturia No history of hypnogogical hallucinations, sleep paralysis, or cataplexy. DURING THE DAY/WAKE STATE: During the day patient may feel some sleepiness. [place] sleepiness scale is 9. Patient doesn't take naps. PAST MEDICAL HISTORY: Hypertension, asthma, diabetes mellitus, chronic kidney problems states 3. PAST SURGICAL HISTORY: Right shoulder surgery. MEDICATIONS: Amlodipine 10 mg once a day, Januvia 100 mg once a day, metformin 1000 mg twice a day, omeprazole 40 mg once a day, simvastatin 40 mg once a day, paroxetine 40 mg once a day, testosterone, farxiga 5 mg once a day, irbesartan 300 mg once a day. SOCIAL HISTORY: Negative for smoking or using alcohol . FAMILY HISTORY: Hypertension, arthritis, cancer, diabetes. REVIEW OF SYSTEMS: Sometimes awakenings from sleep with nocturia. No fevers. No double vision. No recent chest pain. No shortness of breath. No abdominal pain. No bleeding episodes. No blood in urine. No seizure episodes. PHYSICAL EXAMINATION: GENERAL: A pleasant patient without any distress. VITAL SIGNS: BP 133/73, HR 76, RR 16, weight 237.0 pounds, height 5 foot 10.5 inches, body mass index 33.5. HEENT: PERRLA, EOMI. Evaluation of oropharynx showed tongue protrudes midline, low position of soft palate Mallampati 4. NECK: Supple. No JVD. Thyroid is not palpable. 18.5 inches in circumference. LUNGS: Clear to percussion and to auscultation. Good air exchange. No wheezing or rhonchi. HEART: S1, S2 regular. No murmurs, gallops or rubs. ABDOMEN: Soft and nontender. Bowel sounds are present. No organomegaly appreciated. EXTREMITIES: No clubbing or cyanosis. [employer]: Awake, alert, and oriented x3. Cranial nerves 2 to 7 intact. There is no fasciculation or atrophy noted. No focal deficits observed. ASSESSMENT: 1. Obstructive sleep apnea hypopnea syndrome diagnosed in another institution 10 years ago. Patient continued to use CPAP equipment every night. Normal apnea-hypopnea reading from day CPAP unit. Extremely low position of soft palate Mallampati 4, wide neck 18.5 inches in circumference. Obstructive sleep apnea hypopnea syndrome. 2. Obesity, BMI 33.5. 3. Hypertension. 4. Asthma. 5 diabetes mellitus. 6 . History of kidney problems states 3. 7. Status post right shoulder surgery. PLAN: 1. Home sleep apnea test for reevaluation of patient's breathing during sleep. 2. Patient should continue to use Pap equipment every night for the whole night 3. Preferable position during sleep on the side. 4. No driving if patient feels any sleepiness. Patient is aware of civil and criminal liability for unsafe driving. 5. Sleep hygiene with regular sleep time for at least 7.5-8 hours. 6. Watching and losing weight. 7. Follow-up visit in 6 months or earlier if patient has any problems. Thank you very much for referring this patient for consultation. Sincerely, Tj Leach MD, PhD, FAASM. Diplomat of [employer], Sleep Medicine Board by [employer] Outreach Representative of [facility] Past Medical History Past Medical History: Diabetes Mellitus, Hyperlipidemia, Hypertension, Sleep Apnea/CPAP/BIPAP Additional Past Medical History / Comment(s): uses cpap, difficulty taking deep breaths on trellegy History of Any Multi-Drug Resistant Organisms: None Reported Past Surgical History: Orthopedic Surgery Additional Past Surgical History / Comment(s): RIGHT SHOULDER Past Anesthesia/Blood Transfusion Reactions: No Reported Reaction Smoking Status: Never smoker - Past Family History Mother Additional Family Medical History / Comment(s): HEART BYPASS Father Family Medical History: Cancer Medications and Allergies Home Medications Medication Instructions Recorded Confirmed Type Aspirin 81 mg PO DAILY 02/18/14 01/29/23 History Losartan/Hydrochlorothiazide 1 tab PO DAILY 02/18/14 01/29/23 History [Hyzaar 100-25 Tablet] Multivitamins, Thera [Multivitamin] 1 tab PO DAILY 11/12/14 01/29/23 History Simvastatin [Zocor] 40 mg PO DAILY 11/12/14 01/29/23 History Fenofibrate Nanocrystallized 145 mg PO DAILY 05/26/16 01/29/23 History [Tricor] amLODIPine [Norvasc] 5 mg PO DAILY 05/26/16 01/29/23 History Dapagliflozin Propanediol [Farxiga] 5 mg PO DAILY 07/10/22 01/29/23 History Finerenone [Kerendia] 10 mg PO DAILY 07/10/22 01/29/23 History Irbesartan 300 mg PO DAILY 07/10/22 01/29/23 History Omeprazole 40 mg PO DAILY 07/10/22 01/29/23 History PARoxetine HCL 40 mg PO DAILY 07/10/22 01/29/23 History Testosterone [Axiron] 30 mg TRANSDERM DAILY 07/10/22 01/29/23 History cloNIDine 0.2 MG/24HR PATCH 0.2 mg TRANSDERM Q7D 07/10/22 01/29/23 History [Catapres-TTS] metFORMIN HCL 1,000 mg PO BID 07/10/22 01/29/23 History sitaGLIPtin [Januvia] 100 mg PO DAILY 07/10/22 01/29/23 History Allergies Allergy/AdvReac Type Severity Reaction Status Date / Time No Known Allergies Allergy Verified 01/29/23 08:15 Sleep Note - Sleep Note Sleep Note: Temperature: Pulse Rate: Respiratory Rate: Blood Pressure: SpO2: Height: Weight: BMI: Neck Circumference:
== END ==
LOC: 3 N SLEEP 13:59
PROVIDERS: ATTEND Internal Medicine
DX: G47.33 Obstructive sleep apnea (adult) (pediatric) (principal); E66.9 Obesity, unspecified; I10 Essential (primary) hypertension; J45.909 Unspecified asthma, uncomplicated; E11.9 Type 2 diabetes mellitus without complications; Z96.611 Presence of right artificial shoulder joint; Z87.448 Personal history of other diseases of urinary system; Z79.84 Long term (current) use of oral hypoglycemic drugs; Z79.899 Other long term (current) drug therapy
CPT/HCPCS: 99211

== ENCOUNTER → 2023-03-08 | Outpatient (CLI) | payer BC | LOC: 3 N SLEEP 12:56 | PROVIDERS: ATTEND Internal Medicine | DX: G47.33 Obstructive sleep apnea (adult) (pediatric) (principal) ==

== ENCOUNTER → 2023-03-18 | Outpatient (CLI) | payer BC ==
[2023-03-18 14:23] VITALS: BP 117/81; PULSE 65; RESP 15; TEMP 98.4
--- NOTE | 2023-03-18 15:07 | P.PAINPG ---
PQRS Measure Charge Sheet Comment: A 62 yr old female with a history of severe and chronic LBP secondary to lumbar DDD and spondylosis with facet arthropathy without myelopathy presents today for evaluation s/p R TPIs L2-S1 #1. Pt states he experienced 50 % pain relief x 6 wks s/p procedure. Pain level is provoked at 8/10 in intensity, cons tant, localized in the R lumbar spine, predominantly axial, pinching in character without shooting pain. Pain is provoked by bending, lifting. Pain is alleviated with PT semi weekly since May 2022 till present, heat, medications, repositioning and rest. Oswestry axial pain score of 24. Interventional pain procedures completed include R MBB L3-L5 x2, DANISH L4-L5 x1, R TPIs L2-S1 x1 Patient is currently on Tyl, Ibu Patient denies any side effects of the medication(s), denies excessive drowsiness or sleepiness, denies suicidal ideation and reports that the current pain medication is helping to control the pain and improve activities of daily living. Patient denies any motor or sensory deficits. Patient denies any fever or night sweats, denies any change in the bowel movements or urination. Physical Examination: -Constitutional: Cooperative. Not in acute distress . - Neurologic: Cranial nerve II to XII intact. No focal neurological deficits. - Psychatric: Alert & oriented x 3. Matching mood & appropriate affect. Judgment and insight intact. - Musculoskeletal: Cervical spine: Muscle bulk/ tone/ strength in the bilateral upper extremities normal Vertebral body tenderness to palpation over Spurling test positive Distraction test positive Facet loading test positive TTP Thoracic spine Muscle bulk / tone/ strength in the bilateral paraspinal muscles normal Vertebral body tender to palpation over Facet loading test positive TTP Lumbar spine: Motor bulk/ tone/ strength lower extremities , thigh and legs : 5/5 Deep tendon reflexes : Normal Knee Jerk. Normal Ankle Jerk . Vertebral body tenderness to palpation over Lord Test positive R taut bands w twitch response over L2-S1 Lumbar Facet Loading Test positive Straight Leg Raise: positive at 30 degrees right side/ left side Gaenslen's Test positive Sacral spine : Severe tenderness over the Sacroiliac joint: right side / left side Range of motion: Flexion of the lumbar spine <60 degrees Range of motion: Extension of the lumbar spine <20 degrees Gaenslen's Test positive right side / left side Ryan test: positive right side / left side Thigh Thrust Test positive right side / left side Sacral Thrust Test positive right side / left side Assessment and plan: Chronic LBP secondary to lumbar DDD, spondylosis with facet arthropathy without myelopathy Recommendation of follow up w Dr Lemon. May need to follow up w orthopedic surgeon to explore additional treatment options. All questions answered. I have spent less than 30 minutes on patient care today. Dr Alonzo was available by phone for the evaluation of this patient. The time was used to review the medical records including relevant urine studies and Prescription history (MAPs), review of the available imaging, evaluation and examination of the patient, coordination of care with the medical staff and if applicable referring physicians, as well as creation of the medical record PQRS Narrative: Smoking Status Never smoker Hx Alcohol Use (MH) No Home Medications: Ambulatory Orders Aspirin 81 mg PO DAILY 02/18/14 Losartan/Hydrochlorothiazide [Hyzaar 100-25 Tablet] 1 tab PO DAILY 02/18/14 Multivitamins, Thera [Multivitamin] 1 tab PO DAILY 11/12/14 Simvastatin [Zocor] 40 mg PO DAILY 11/12/14 Fenofibrate Nanocrystallized [Tricor] 145 mg PO DAILY 05/26/16 amLODIPine [Norvasc] 5 mg PO DAILY 05/26/16 Dapagliflozin Propanediol [Farxiga] 5 mg PO DAILY 07/10/22 Finerenone [Kerendia] 10 mg PO DAILY 07/10/22 Irbesartan 300 mg PO DAILY 07/10/22 Omeprazole 40 mg PO DAILY 07/10/22 PARoxetine HCL 40 mg PO DAILY 07/10/22 Testosterone [Axiron] 30 mg TRANSDERM DAILY 07/10/22 cloNIDine 0.2 MG/24HR PATCH [Catapres-TTS] 0.2 mg TRANSDERM Q7D 07/10/22 metFORMIN HCL 1,000 mg PO BID 07/10/22 sitaGLIPtin [Januvia] 100 mg PO DAILY 07/10/22 Controlled Substance Measures - Controlled Substance Measures Is patient prescribed a controlled substance at discharge?: No
== END ==
LOC: PNWHC3 13:02
PROVIDERS: ATTEND Specialist
DX: M51.37 Other intervertebral disc degeneration, lumbosacral region (principal); M47.817 Spondylosis without myelopathy or radiculopathy, lumbosacral region; G89.29 Other chronic pain; Z79.82 Long term (current) use of aspirin
CPT/HCPCS: 99211

== ENCOUNTER → 2024-08-12 | Outpatient (CLI) | payer OTHER ==
--- NOTE | 2024-08-13 07:56 | MR ---
EXAMINATION TYPE: MR lumbar spine wo/w con DATE OF EXAM: 08/12/2024 2:25 PM COMPARISON: 05/29/2022. CLINICAL INDICATION: Male, 63 years old with history of M54.50 M54.16 M46.06, low back pain extending into the right thigh TECHNIQUE: Multiplanar, multisequence images of the lumbar spine were obtained before and after admin istration of 11 mL intravenous Gadobutrol gadolinium contrast. FINDINGS: Redemonstrated congenital spinal canal narrowing with AP canal dimension of 1.1 cm. Mild multilevel degenerative disc desiccation and disc bulging is present with scattered small endpla te Schmorl's nodes. There is edematous Modic type I endplate change anteriorly towards the right at T12-L1. Small posteri or annular fissure L4-L5. [id number] facet arthropathy mid to lower lumbar spine. Conus medullaris is normal. No suspicious bone marrow replacement. Alignment is maintained. Combination of congenital spinal canal narrowing and diffuse bulging disc contribute to overall mild to moderate spinal canal narrowing at L3-L4 and mild at L2-L3 and L4-L5. On the right, changes resulting in [id number] neuroforaminal stenosis at L4-L5 and mild at L2-L 3, L3-L4, and L5-S1. On the left, changes result in mild neuroforaminal narrowing L2-S1 levels. No prevertebral or paravertebral soft tissue abnormality seen. No abnormal enhancement within the spinal canal. IMPRESSION: 1. Congenital spinal canal narrowing with superimposed mild multilevel disc disease. No acute discs c ontribute to mild to moderate spinal canal narrowing at L3-L4 and mild overall spinal canal narrowing at L2-L3 and L4-L5. 2. Additional mild to moderate facet arthropathy mid to lower lumbar spine. 3. Changes resulting in [id number] right neural foraminal stenosis at L4-L5. Mild at multiple a dditional levels on both sides mid and lower lumbar spine. Report edematous Modic type I endplate change anteriorly towards the right at T12-L1 and a posterior annular fissure at L4-L5. [facility], , 08/13/2024 7:54 AM
== END | disposition home or self-care (01) ==
LOC: RADMRIMAIN 13:24
PROVIDERS: ATTEND Family Medicine
DX: M47.26 Other spondylosis with radiculopathy, lumbar region (principal); M46.06 Spinal enthesopathy, lumbar region; R60.9 Edema, unspecified; M99.73 Connective tissue and disc stenosis of intervertebral foramina of lumbar region
CPT/HCPCS: 72158; A9585